=== PATIENT | male | born 1990 | race Asian ===

== ENCOUNTER 2023-10-04 11:16 | Day surgery (SDC) | payer BC ==
[2023-09-26 14:35] VITALS: BMI 22.3
[2023-10-04 13:15] VITALS: RESP 17
[2023-10-04 13:27] VITALS: BP 118/75; PULSE 68; TEMP 97.4
== END 2023-10-04 13:28 | disposition home or self-care (01) ==
LOC: FASU-ENDO 11:16
PROVIDERS: ATTEND Internal Medicine Gastroenterology
PROC: 0DJD8ZZ Inspection of Lower Intestinal Tract, Via Natural or Artificial Opening Endoscopic (ICD-10-PCS; principal; 2023-10-04 12:14)
DX: K92.1 Melena (principal); K64.1 Second degree hemorrhoids; R19.4 Change in bowel habit